=== PATIENT | male | born 2000 | race African-American/Black ===

== ENCOUNTER 2022-02-24 08:23 | Emergency (ER) | payer BC ==
[~2022-02-24] VITALS: Ht 182.9 cm; Wt 142.9 kg
[2022-02-24 08:33] VITALS: BP_SYST 134
--- NOTE | 2022-02-24 08:36 | NUR ---
Patient to ER Tent 1 to gown for evaluation. Side rails up.
--- NOTE | 2022-02-24 08:40 | NUR ---
Flu and covid swab sent to lab.
--- NOTE | 2022-02-24 09:15 | NUR ---
ER at bedside examining patient.
[2022-02-24] MEDS ORDERED: D-ME118S48 PO (10:01)
[2022-02-24] MEDS ORDERED: IBUP-1971 PO (10:01)
[2022-02-24] MEDS ORDERED: OSEL75CA PO (10:01)
[2022-02-24 10:09] VITALS: BP_SYST 128
--- NOTE | 2022-02-24 10:10 | NUR ---
Patient given written and verbal discharge instructions and verbalizes understanding. ER MD discussed with patient the results and treatment provided. Patient in stable condition. ID arm band removed. Patient educated on pain management and to follow up with PMD. Pain Scale 0/10. Opportunity for questions provided and answered. Medication side effect fact sheet provided.
[2022-02-25] MEDS ORDERED: NAPR-1172 PO (02:44)
[2022-02-25] MEDS ORDERED: HYDR-3917 PO (02:44)
== END 2022-02-24 10:10 | disposition home or self-care (01) ==
LOC: SED 08:23
DX: J10.1 Influenza due to other identified influenza virus with other respiratory manifestations (principal); R05.9 Cough, unspecified; R50.9 Fever, unspecified; Z79.899 Other long term (current) drug therapy; Z20.822 Contact with and (suspected) exposure to COVID-19
CPT/HCPCS: 36415; 99283

== ENCOUNTER 2022-02-24 23:27 | Emergency (ER) | payer BC ==
[~2022-02-24] VITALS: Ht 182.9 cm; Wt 142.4 kg
[~2022-02-24 23:27] MED LIST: D-ME118S48 PO; IBUP-1971 PO; OSEL75CA PO
[2022-02-24 23:35] VITALS: BP_SYST 148
--- NOTE | 2022-02-24 23:42 | NUR ---
PT HERE ACCOMPANIED BY HIS FATHER C/O FEVER X3 DAYS. PT STATED THAT HE WAS EARLIER THIS MORNING FOR SAME REASON AND HE STATED THAT HE WAS SENT HOME WITH FLU MEDICATION. PT STATES HE'S BEEN LIGHT HEADED AND HAVE HEAD ACHE WITH NAUSEA. DENIES V/D PMH:DENIES PT AAOX4, PENDING MD MARINO
[2022-02-25] MEDS: ONDANSETRON 4 MG ODT TAB PO ONE (01:58)
[2022-02-25] MEDS: KETOROLAC TROMETHAMINE 60 MG/2 ML VIAL IM ONE (01:59)
[2022-02-25] MEDS ORDERED: NAPR-1172 PO (02:44)
[2022-02-25] MEDS ORDERED: HYDR-3917 PO (02:44)
--- NOTE | 2022-02-25 02:58 | NUR ---
Patient given written and verbal discharge instructions and verbalizes understanding. ER MD discussed with patient the results and treatment provided. Patient in stable condition. ID arm band removed. IV catheter removed intact and dressing applied, no active bleeding. Rx of NAPROXEN, NORCO given. Patient educated on pain management and to follow up with PMD. Pain Scale . Opportunity for questions provided and answered. Medication side effect fact sheet provided.
== END 2022-02-25 02:58 | disposition home or self-care (01) ==
LOC: SED 23:27
DX: J11.1 Influenza due to unidentified influenza virus with other respiratory manifestations (principal); M79.10 Myalgia, unspecified site; R50.9 Fever, unspecified; R05.9 Cough, unspecified; R11.10 Vomiting, unspecified; Z79.899 Other long term (current) drug therapy
CPT/HCPCS: 99283; 71045; 96372; Q0162; J1885